=== PATIENT | male | born 1990 | race Two or more races ===

== ENCOUNTER 2020-07-20 23:22 | Emergency (ER) | payer MEDICAID ==
[~2020-07-20] VITALS: Ht 172.7 cm; Wt 152.0 kg
[2020-07-20] MEDS ORDERED: MAALOX/HYOSCYAMINE/LIDOCAINE 45 ML BTL ONE (23:34)
[2020-07-20] MEDS ORDERED: PLEASE ENTER ALLERGIES MC SCH (23:45)
[2020-07-21] MEDS ORDERED: MAALOX/HYOSCYAMINE/LIDOCAINE 45 ML BTL PO ONE
[2020-07-21 00:06] LABS: BASOPHILS % (AUTO) 1 % (0-1); EOSINOPHILS % (AUTO) 1 % (1-7); LYMPHOCYTES % (AUTO) 42 % (22-44); MEAN CORPUSCULAR HEMOGLOBIN 26.5 pg (27.5-34.5); MEAN CORPUSCULAR HGB CONC 33.5 g/dL (33.2-36.2); MEAN PLATELET VOLUME 7.8 fL (7.4-10.4); MONOCYTES % (AUTO) 4 % (2-9); NEUTROPHILS % (AUTO) 54 % (42-75); PLATELET COUNT 303 x10^3/uL (130-400); RED BLOOD COUNT 5.53 x10^6/uL (4.38-5.82); RED CELL DISTRIBUTION WIDTH 14.7 % (9.4-14.8)
[2020-07-21 00:11] LABS: MD NO
[2020-07-21 00:13] LABS: ALANINE AMINOTRANSFERASE 65 U/L (12-78); ALBUMIN 3.6 g/dL (3.4-5.0); ANION GAP 6 mmol/L (5-15); CALCIUM 9.5 mg/dL (8.5-10.1); CHLORIDE 106 mmol/L (98-107); CREATININE 0.65 mg/dL (0.7-1.3)
[2020-07-21 00:15] LABS: ALKALINE PHOSPHATASE 202 U/L (45-117); BILIRUBIN,TOTAL 0.5 mg/dL (0.2-1.0); TOTAL PROTEIN 8.2 g/dL (6.4-8.2)
--- NOTE | 2020-07-21 02:21 | NUR ---
wrestling coach: pt from lobby to room 37
--- NOTE | 2020-07-21 02:34 | NUR ---
assessment made. chart up for MD to see.
[2020-07-21 03:06] VITALS: BP 111/75
== END 2020-07-21 03:30 | disposition home or self-care (01) ==
LOC: ED 07-21 03:01
DX: K29.00 Acute gastritis without bleeding (principal); R10.13 Epigastric pain; R11.0 Nausea; R94.31 Abnormal electrocardiogram [ECG] [EKG]
CPT/HCPCS: 36415; 76700; 80053; 83690; 85025; 93005; 99285

== ENCOUNTER 2020-07-28 22:12 | Emergency (ER) | payer MEDICAID ==
[~2020-07-28] VITALS: Ht 188 cm; Wt 150.4 kg
--- NOTE | 2020-07-28 22:26 | NUR ---
PATIENT WALKED BACK FROM TRIAGE WITH CHIEF C/O ABD PAIN. PATIENT STATES HE WAS HERE A WEEK AGO FOR ABD PAIN, BUT PAIN IS STILL THERE. PATIENT REPORTS HE HAS BEEN TAKING FIVE 81 MG EZEKIEL ASPIRIN EVERY DAY FOR THE LAST 2 WEEKS. PATIENT STATES HE STARTED HAVING NAUSEA 1 WEEK AGO, AND HAS BEEN DRY HEAVING. BELINDA GONZALEZ, CALL LIGHT WITHIN REACH.
--- NOTE | 2020-07-28 22:29 | NUR ---
ERMD AT BEDSIDE FOR EVALUATION.
[2020-07-28] MEDS ORDERED: ONDANSETRON ODT 4 MG ONE (22:33)
[2020-07-28] MEDS ORDERED: MAALOX/HYOSCYAMINE/LIDOCAINE 45 ML BTL ONE (22:33)
--- NOTE | 2020-07-28 22:36 | NUR ---
PATIENT ALSO REPORTS NOT BEING ABLE TO "RETRACT MY FORESKIN FOR AWHILE." PER PATIENT HE BELIEVES THIS IS RELATED TO INFECTIONS HE GETS WHEN "I ALLOW MY SUGARS TO GET OUT OF CONTROL."
[2020-07-28 22:45] VITALS: BP 127/67
[2020-07-28] MEDS ORDERED: ONDANSETRON ODT 4 MG PO ONE (23:00)
[2020-07-28] MEDS ORDERED: MAALOX/HYOSCYAMINE/LIDOCAINE 45 ML BTL PO ONE (23:00)
--- NOTE | 2020-07-28 23:13 | NUR ---
Patient given discharge instructions and prescription and they have confirmed that they understand the instructions. Patient stable and ambulatory with steady gait from ED.
== END 2020-07-28 23:14 | disposition home or self-care (01) ==
LOC: ED 22:27
DX: K29.00 Acute gastritis without bleeding (principal); B37.42 Candidal balanitis; N47.1 Phimosis; R19.7 Diarrhea, unspecified
CPT/HCPCS: 93005; 99283; Q0162

== ENCOUNTER 2020-08-03 05:35 | Emergency (ER) | payer MEDICAID ==
[~2020-08-03] VITALS: Ht 188 cm; Wt 150.4 kg
--- NOTE | 2020-08-03 06:02 | NUR ---
ERP AT BEDSIDE FOR ASSESSMENT
[2020-08-03] MEDS ORDERED: METOCLOPRAMIDE 10MG TABLET PO STA (06:17)
[2020-08-03] MEDS ORDERED: MAALOX/HYOSCYAMINE/LIDOCAINE 45 ML BTL ONE (06:22)
[2020-08-03] MEDS ORDERED: METOCLOPRAMIDE 10MG TABLET ONE (06:22)
--- NOTE | 2020-08-03 06:27 | NUR ---
PT MEDICATED PER OCT. NOW TO XRAY
[2020-08-03] MEDS ORDERED: MAALOX/HYOSCYAMINE/LIDOCAINE 45 ML BTL PO ONE (06:30)
[2020-08-03 07:00] LABS: BASOPHILS % (AUTO) 1 % (0-1); EOSINOPHILS % (AUTO) 1 % (1-7); LYMPHOCYTES % (AUTO) 35 % (22-44); MEAN CORPUSCULAR HEMOGLOBIN 26.5 pg (27.5-34.5); MEAN CORPUSCULAR HGB CONC 33.6 g/dL (33.2-36.2); MEAN PLATELET VOLUME 7.8 fL (7.4-10.4); MONOCYTES % (AUTO) 4 % (2-9); NEUTROPHILS % (AUTO) 60 % (42-75); PLATELET COUNT 296 x10^3/uL (130-400); RED BLOOD COUNT 5.37 x10^6/uL (4.38-5.82); RED CELL DISTRIBUTION WIDTH 14.4 % (9.4-14.8)
--- NOTE | 2020-08-03 07:00 | NUR ---
report from [facility]
[2020-08-03 07:02] LABS: MD NO
[2020-08-03 07:13] LABS: ALBUMIN 3.5 g/dL (3.4-5.0); ANION GAP 6 mmol/L (5-15); CALCIUM 9.2 mg/dL (8.5-10.1); CHLORIDE 104 mmol/L (98-107)
[2020-08-03 07:16] LABS: ALANINE AMINOTRANSFERASE 84 U/L (12-78); ALKALINE PHOSPHATASE 202 U/L (45-117); BILIRUBIN,TOTAL 0.5 mg/dL (0.2-1.0); CREATININE 0.67 mg/dL (0.7-1.3); TOTAL PROTEIN 7.8 g/dL (6.4-8.2)
--- NOTE | 2020-08-03 08:28 | NUR ---
Patient/Caregiver given discharge instructions and they have confirmed that they understand the instructions. Patient ambulatory with steady gait.
[2020-08-03 08:46] VITALS: BP 120/78
== END 2020-08-03 08:47 | disposition home or self-care (01) ==
LOC: ED 05:56
DX: R10.13 Epigastric pain (principal); R11.0 Nausea; R19.7 Diarrhea, unspecified; E11.9 Type 2 diabetes mellitus without complications
CPT/HCPCS: 36415; 74022; 80053; 80074; 83690; 85025; 93005; 99285

== ENCOUNTER 2021-01-02 22:52 | Emergency (ER) | payer MEDICAID ==
[~2021-01-02] VITALS: Ht 188 cm; Wt 159.3 kg
[2021-01-02 23:03] VITALS: BP 134/82
== END 2021-01-03 01:17 | disposition left against medical advice (07) ==
LOC: ED 23:43
DX: R07.9 Chest pain, unspecified (principal); Z53.21 Procedure and treatment not carried out due to patient leaving prior to being seen by health care provider
CPT/HCPCS: 93005; 99283